=== PATIENT | male | born 1995 | race Caucasian/White ===

== ENCOUNTER 2019-06-11 | Emergency (ER) | payer OTHER | END 2019-06-11 17:47 | disposition home or self-care (01) | DRG 605 | PROC: 0HQGXZZ Repair Left Hand Skin, External Approach (ICD-10-PCS; principal; 2019-06-11) | DX: S61.211A Laceration without foreign body of left index finger without damage to nail, initial encounter (principal); W27.8XXA Contact with other nonpowered hand tool, initial encounter; Y92.89 Other specified places as the place of occurrence of the external cause; Y99.0 Civilian activity done for income or pay ==

== ENCOUNTER 2019-06-14 13:20 | Emergency (ER) | payer OTHER ==
[2019-06-14] MEDS ORDERED: KEFLEX500 M1 PO (13:49)
[2019-06-14 13:55] VITALS: BP 164/72
== END 2019-06-14 13:55 | disposition home or self-care (01) | DRG 950 ==
LOC: ED 13:20
DX: S61.211D Laceration without foreign body of left index finger without damage to nail, subsequent encounter (principal); X58.XXXD Exposure to other specified factors, subsequent encounter